=== PATIENT | female | born 1955 | race Caucasian/White ===

== ENCOUNTER 2017-09-12 10:06 | Outpatient (CLI) | payer OTHER ==
[~2017-09-12 10:06] MED LIST: DURICEF PO
== END 2017-09-12 10:10 | disposition home or self-care (01) ==
LOC: LAB 10:06
DX: D50.8 Other iron deficiency anemias (principal); E78.2 Mixed hyperlipidemia; E08.00 Diabetes mellitus due to underlying condition with hyperosmolarity without nonketotic hyperglycemic-hyperosmolar coma (NKHHC); D02.20 Carcinoma in situ of unspecified bronchus and lung

== ENCOUNTER → 2018-09-19 | Outpatient (CLI) | payer OTHER | END | disposition home or self-care (01) | LOC: RAD 14:09 | DX: R07.89 Other chest pain (principal) ==

== ENCOUNTER 2018-09-21 12:16 | Emergency (ER) | payer OTHER ==
[~2018-09-21] VITALS: Ht 170.2 cm; Wt 81.6 kg
== END 2018-09-21 20:13 | disposition home or self-care (01) ==
LOC: ER 12:16
DX: R07.89 Other chest pain (principal)

== ENCOUNTER 2018-09-26 14:04 | Emergency (ER) | payer OTHER ==
[~2018-09-26] VITALS: Ht 172.7 cm; Wt 81.6 kg
[2018-09-26] MEDS ORDERED: OSEL75CA (14:31)
== END 2018-09-26 18:37 | disposition home or self-care (01) ==
LOC: ER 14:04
DX: J22 Unspecified acute lower respiratory infection (principal)

== ENCOUNTER 2018-09-30 10:28 | Outpatient (CLI) | payer OTHER ==
[~2018-09-30 10:28] MED LIST changes: -PANTOPRAZOLE SO40 MG PO; -PREDNISONE20 MG PO; -Pulmicort 0.5 MG/2 M IH; -XOPENEX0.63 MG/3 IH
== END 2018-09-30 15:00 | disposition home or self-care (01) ==
LOC: LAB 10:28
DX: A49.8 Other bacterial infections of unspecified site (principal); I76 Septic arterial embolism; C34.12 Malignant neoplasm of upper lobe, left bronchus or lung; R97.0 Elevated carcinoembryonic antigen [CEA]; E03.8 Other specified hypothyroidism; E78.00 Pure hypercholesterolemia, unspecified

== ENCOUNTER → 2018-09-30 | Outpatient (CLI) | payer OTHER ==
[~2018-09-30] MED LIST changes: +OSEL75CA; +PANTOPRAZOLE SO40 MG PO; +PREDNISONE20 MG PO; +Pulmicort 0.5 MG/2 M IH; +XOPENEX0.63 MG/3 IH
== END | disposition home or self-care (01) ==
LOC: NUCLEAR 11:19
DX: I33.0 Acute and subacute infective endocarditis (principal)

== ENCOUNTER 2018-10-01 11:04 | Inpatient (IN) | payer OTHER ==
[~2018-10-01] VITALS: Ht 172.7 cm; Wt 77.1 kg
[2018-10-08] MEDS ORDERED: PANTOPRAZOLE SO40 MG PO (13:03)
[2018-10-08] MEDS ORDERED: PREDNISONE20 MG PO (13:03)
[2018-10-08] MEDS ORDERED: XOPENEX0.63 MG/3 IH (13:03)
[2018-10-08] MEDS ORDERED: Pulmicort 0.5 MG/2 M IH (13:03)
== END 2018-10-08 13:30 | disposition home or self-care (01) | DRG 206 ==
LOC: MEDJ 11:04
PROVIDERS: ADMIT Internal Medicine Geriatric Medicine
PROC: 8E0ZXY6 Isolation (ICD-10-PCS; 2018-10-01)
PROC: BW21ZZZ Computerized Tomography (CT Scan) of Abdomen and Pelvis (ICD-10-PCS; 2018-10-01)
PROC: CW1NLZZ Planar Nuclear Medicine Imaging of Whole Body using Gallium 67 (Ga-67) (ICD-10-PCS; 2018-10-01)
PROC: 3E0F7GC Introduction of Other Therapeutic Substance into Respiratory Tract, Via Natural or Artificial Opening (ICD-10-PCS; 2018-10-04)
PROC: 0JHF3WZ Insertion of Totally Implantable Vascular Access Device into Left Upper Arm Subcutaneous Tissue and Fascia, Percutaneous Approach (ICD-10-PCS; principal; 2018-10-05)
PROC: [UNRECOGNIZED PROCEDURE] (2018-10-08)
DX: J22 Unspecified acute lower respiratory infection (principal); M35.8 Other specified systemic involvement of connective tissue; R50.9 Fever, unspecified; D64.89 Other specified anemias; R76.8 Other specified abnormal immunological findings in serum; Z85.118 Personal history of other malignant neoplasm of bronchus and lung; Z88.0 Allergy status to penicillin; Z08 Encounter for follow-up examination after completed treatment for malignant neoplasm

== ENCOUNTER 2018-10-23 09:33 | Outpatient (CLI) | payer OTHER ==
[~2018-10-23 09:33] MED LIST changes: +PANTOPRAZOLE SO40 MG PO; +PREDNISONE20 MG PO; +Pulmicort 0.5 MG/2 M IH; +XOPENEX0.63 MG/3 IH
== END 2018-10-23 09:38 | disposition home or self-care (01) ==
LOC: LAB 09:33
DX: R50.9 Fever, unspecified (principal); D64.89 Other specified anemias; I10 Essential (primary) hypertension; I25.10 Atherosclerotic heart disease of native coronary artery without angina pectoris; M06.1 Adult-onset Still's disease; E03.8 Other specified hypothyroidism

== ENCOUNTER 2019-01-10 12:40 | Outpatient (CLI) | payer OTHER | END 2019-01-10 17:08 | disposition home or self-care (01) | LOC: LAB 12:40 | DX: C34.12 Malignant neoplasm of upper lobe, left bronchus or lung (principal); R97.0 Elevated carcinoembryonic antigen [CEA]; R46.0 Very low level of personal hygiene; R70.0 Elevated erythrocyte sedimentation rate ==

== ENCOUNTER 2019-01-17 14:17 | Outpatient (CLI) | payer OTHER | END 2019-01-17 14:27 | disposition home or self-care (01) | LOC: LAB 14:17 | DX: R70.0 Elevated erythrocyte sedimentation rate (principal); M32.8 Other forms of systemic lupus erythematosus; N39.0 Urinary tract infection, site not specified ==

== ENCOUNTER → 2019-04-02 14:01 | Outpatient (CLI) | payer OTHER | END | disposition home or self-care (01) | LOC: LAB 14:01 | DX: D64.89 Other specified anemias (principal); R76.0 Raised antibody titer ==

== ENCOUNTER → 2019-06-13 | Outpatient (CLI) | payer OTHER | END | disposition home or self-care (01) | LOC: RAD 13:46 → TOM 13:46 | DX: J18.8 Other pneumonia, unspecified organism (principal) ==

== ENCOUNTER → 2019-06-20 | Outpatient (CLI) | payer OTHER | END | disposition home or self-care (01) | LOC: RAD 13:18 | DX: R07.89 Other chest pain (principal) ==

== ENCOUNTER 2019-08-22 13:47 | Outpatient (CLI) | payer OTHER | END 2019-08-22 15:05 | disposition home or self-care (01) | LOC: TOM 13:47 | DX: C34.90 Malignant neoplasm of unspecified part of unspecified bronchus or lung (principal); Z85.118 Personal history of other malignant neoplasm of bronchus and lung ==

== ENCOUNTER 2021-11-11 10:47 | Outpatient (CLI) | payer OTHER | END 2021-11-11 11:07 | disposition home or self-care (01) | LOC: TOM 10:47 | PROVIDERS: ATTEND Internal Medicine | DX: Z85.118 Personal history of other malignant neoplasm of bronchus and lung (principal); B96.0 Mycoplasma pneumoniae [M. pneumoniae] as the cause of diseases classified elsewhere; C34.90 Malignant neoplasm of unspecified part of unspecified bronchus or lung ==

== ENCOUNTER 2022-05-19 08:06 | Outpatient (CLI) | payer OTHER | END 2022-05-19 08:18 | disposition home or self-care (01) | LOC: NUCLEAR 08:06 | PROVIDERS: ATTEND Internal Medicine Hematology & Oncology | DX: C34.12 Malignant neoplasm of upper lobe, left bronchus or lung (principal); Z88.1 Allergy status to other antibiotic agents; Z88.0 Allergy status to penicillin; Z88.8 Allergy status to other drugs, medicaments and biological substances | CPT/HCPCS: 78816; A9552 ==

== ENCOUNTER 2022-06-07 10:40 | Outpatient (CLI) | payer OTHER | END 2022-06-07 11:00 | disposition home or self-care (01) | LOC: TOM 10:40 | PROVIDERS: ATTEND Internal Medicine Endocrinology, Diabetes & Metabolism | DX: J18.9 Pneumonia, unspecified organism (principal); Z90.2 Acquired absence of lung [part of] ==

== ENCOUNTER → 2022-10-04 | Outpatient (CLI) | payer OTHER | END | disposition home or self-care (01) | LOC: TOM 13:20 | PROVIDERS: ATTEND Internal Medicine Pulmonary Disease | DX: J16.8 Pneumonia due to other specified infectious organisms (principal); J43.2 Centrilobular emphysema; Z09 Encounter for follow-up examination after completed treatment for conditions other than malignant neoplasm; Z87.09 Personal history of other diseases of the respiratory system; Z85.118 Personal history of other malignant neoplasm of bronchus and lung ==

== ENCOUNTER 2024-01-02 09:19 | Emergency (ER) | payer OTHER ==
[~2024-01-02] VITALS: Ht 172.7 cm; Wt 74.8 kg
[2024-01-02] MEDS ORDERED: PLAVIX75 MG (10:07)
[2024-01-02] MEDS ORDERED: ADULT LOW DOSE81 M1 (10:07)
[2024-01-02] MEDS ORDERED: ELIQUIS5 MG (10:07)
[2024-01-02] MEDS ORDERED: CARDESARTAN (10:08)
[2024-01-02] MEDS ORDERED: [UNRECOGNIZED DRUG - OTHER] (10:08)
[2024-01-02] MEDS ORDERED: CRESTOR20 MG PO (10:08)
[2024-01-02] MEDS ORDERED: CEFTRIAXONE SODIUM 2,000 MG VIAL IM ONE (10:30)
[2024-01-02] MEDS ORDERED: ORPHENADRINE CITRATE 100 MG TABLET PO ONE (10:30)
[2024-01-02] MEDS ORDERED: CIPROFLOXACIN HCL 500 MG TABLET PO ONE (10:45)
[2024-01-02 11:12] LABS: HEMATOCRIT 45.4 % (36.0-45.00); HEMOGLOBIN 15.5 g/dL (12.0-15.00); MEAN CELL VOLUME 95.9 fL (80.00-100.00); MEAN CORPUSCULAR HEMOGLOBIN 32.7 pg (27.00-32.0); MEAN CORPUSCULAR HGB CONC 34.1 g/dl (32.0-36.0); PLATELET COUNT 395 K/uL (150-450); RED BLOOD COUNT 4.74 M/uL (4.00-6.00); RED CELL DISTRIBUTION WIDTH 13.6 % (11.5-14.5)
[2024-01-02 11:28] LABS: PARTIAL THROMBOPLASTIN TIME 25.8 SECONDS (22.0-34.0); PROTHROMBIN TIME 10.5 SECONDS (9.0-11.5)
== END 2024-01-02 14:42 | disposition home or self-care (01) ==
LOC: ER 09:20
PROVIDERS: General Practice
DX: S01.81XA Laceration without foreign body of other part of head, initial encounter (principal); W19.XXXA Unspecified fall, initial encounter; Y93.89 Activity, other specified; Y92.098 Other place in other non-institutional residence as the place of occurrence of the external cause; Y99.8 Other external cause status; I10 Essential (primary) hypertension; Z88.1 Allergy status to other antibiotic agents
CPT/HCPCS: 13132; 13133 ×7; 36415; 70450; 96372; 99284; J0696

== ENCOUNTER 2024-06-30 09:50 | Outpatient (CLI) | payer OTHER ==
[~2024-06-30 09:50] MED LIST changes: +ADULT LOW DOSE81 M1; +CARDESARTAN; +CRESTOR20 MG PO; +ELIQUIS5 MG; +PLAVIX75 MG; +[UNRECOGNIZED DRUG - OTHER]
[2024-06-30 11:03] LABS: URINE APPEARANCE Clear; URINE BILIRRUBIN Negative (NEGATIVE); URINE BLOOD Negative; URINE COLOR Yellow; URINE GLUCOSE Negative (NEGATIVE); URINE KETONE Negative (NEGATIVE); URINE LEUKOCYTE Trace; URINE NITRATE Negative; URINE PROTEIN Negative (NEGATIVE); URINE UROBILINOGEN 0.2 E.U./dl
[2024-06-30 11:04] LABS: HEMOGLOBIN 14.2 g/dL (12.0-15.00); MEAN CELL VOLUME 91.1 fL (80.00-100.00); MEAN CORPUSCULAR HEMOGLOBIN 30.8 pg (27.00-32.0); MEAN CORPUSCULAR HGB CONC 33.8 g/dl (32.0-36.0); PLATELET COUNT 305 K/uL (150-450); RED CELL DISTRIBUTION WIDTH 16.9 % (11.5-14.5)
[2024-06-30 11:09] LABS: URINE EPITHELIAL CELLS 12.4 uL (0.0-38.8); URINE RBC 3.6 uL (0.0-20.8); URINE WBC 4.4 uL (0.0-23.2)
[2024-06-30 11:17] LABS: URINE CAST 0.44 uL (0.0-1.40)
[2024-06-30 11:32] LABS: PARTIAL THROMBOPLASTIN TIME 29.1 SECONDS (22.0-34.0); PROTHROMBIN TIME 10.9 SECONDS (9.0-11.5)
[2024-06-30 12:12] LABS: CALCIUM 9.6 mg/dL (8.5-10.1); CREATININE SERUM 0.7 mg/dL (0.55-1.02); GFR 82.97; POTASSIUM 4.58 mEq/L (3.5-5.1)
== END 2024-06-30 09:58 | disposition home or self-care (01) ==
LOC: RAD 09:50
PROVIDERS: ATTEND Internal Medicine
DX: D64.9 Anemia, unspecified (principal); I10 Essential (primary) hypertension; N39.0 Urinary tract infection, site not specified; R79.1 Abnormal coagulation profile

== ENCOUNTER → 2024-10-31 | Outpatient (CLI) | payer OTHER | END | disposition home or self-care (01) | LOC: TOM 10:58 | PROVIDERS: ATTEND Radiology Diagnostic Radiology | DX: C34.91 Malignant neoplasm of unspecified part of right bronchus or lung (principal) | CPT/HCPCS: 71260; Q9965 ==

== ENCOUNTER 2025-03-06 08:11 | Outpatient (CLI) | payer OTHER | END 2025-03-06 08:17 | disposition home or self-care (01) | LOC: NUCLEAR 08:11 | PROVIDERS: ATTEND Internal Medicine | DX: I20.9 Angina pectoris, unspecified (principal) | CPT/HCPCS: 78452; 93017; A9500 ==

== ENCOUNTER 2025-05-22 17:49 | Inpatient (IN) | payer OTHER ==
[~2025-05-22] VITALS: Ht 172.7 cm; Wt 69.4 kg
[2025-05-22] MEDS ORDERED: PROTONIX40 M1 PO (18:04)
[2025-05-22] MEDS ORDERED: PLAVIX75 MG PO (18:04)
[2025-05-22] MEDS ORDERED: CRESTOR40 MG PO (18:04)
[2025-05-22] MEDS ORDERED: ELIQUIS5 MG PO (18:04)
[2025-05-22] MEDS ORDERED: PAXIL20 MG PO (18:05)
--- NOTE | 2025-05-22 18:05 | NUR ---
SE RECIBE PTE ALERTA Y ORIENTADA X3 EN AMBULANCIA RFIRIENDO SOB E HIPOTENSION. SE MIDEN S/V Y SE UBICA.
[2025-05-22] MEDS ORDERED: LEVALBUTEROL HCL 1.25 MG/3 ML SOLUTION IH SCH (18:21)
[2025-05-22] MEDS ORDERED: VANCOMYCIN HCL 1,000 MG VIAL IV SCH (18:22)
[2025-05-22] MEDS ORDERED: PANTOPRAZOLE SODIUM 40 MG/VIAL VIAL IV ONE (18:30)
[2025-05-22] MEDS ORDERED: 0.9 % SODIUM CHLORIDE 1,000 ML IV SCH (18:30)
[2025-05-22] MEDS ORDERED: LEVALBUTEROL HCL 1.25 MG/3 ML SOLUTION IH ONE (18:43)
[2025-05-22] MEDS ORDERED: PANTOPRAZOLE SODIUM 40 MG in 0.9 % SODIUM CHLORIDE 8 ML IV PUSH SCH (18:58)
[2025-05-22] MEDS ORDERED: APIXABAN 5 MG TABLET PO SCH (18:59)
[2025-05-22 19:41] LABS: INR 1.1
[2025-05-22 20:00] LABS: ALT/SGPT 43.0 U/L (12-78); AST/SGOT 63.0 U/L (15-37); BILIRUBIN TOTAL 0.38 mg/dL (0.3-1.2); BUN CREA RATIO 15.0 (7.0-25.0); CREATININE SERUM 0.71 mg/dL (0.55-1.02); GFR 81.38; GLOBULINA 3.8 G/DL (2.4-3.5); GLUCOSE FASTING 120.0 mg/dL (65-100); LDH 470.0 U/L (84-246); OSMOLALITY SERUM 282.0 MOSM/KG (275-295)
[2025-05-22 20:21] LABS: BASO % 0.2 % (0.1-1.2); EOS # 0.00 (0.04-0.54); EOS % 0.0 % (0.7-7.0); LYMPH # 0.60 (1.18-3.74); LYMPH % 7.0 % (19.3-53.1); MEAN PLATELET VOLUME 9.70 fl (9.4-12.4); MONO # 0.86 (0.24-0.82); MONO % 10.0 % (4.7-12.5); NEUT # 7.05 (1.56-6.13); NEUT % 82.2 % (34.0-71.1); RED CELL DISTRIBUTION WIDTH 20.5 % (11.6-14.4)
[2025-05-22 20:21] LABS: COVID-19 AG NEGATIVE (NEGATIVE)
[2025-05-22 21:03] LABS: ERYTHROCYTE SEDIMENTATION RATE 76 mm/hr (0-30)
[2025-05-22] MEDS ORDERED: ROSUVASTATIN CALCIUM 10 MG TABLET PO SCH (21:39)
[2025-05-22] MEDS ORDERED: ONDANSETRON HCL 4 MG in 0.9 % SODIUM CHLORIDE 50 ML IV PRN (21:45)
[2025-05-22] MEDS ORDERED: ROSUVASTATIN CALCIUM 20 MG TABLET PO ONE (22:03)
[2025-05-22 22:13] VITALS: BP 107/72; O2SAT 95
[2025-05-23] VITALS (24 sets, daily range): BP systolic 65–158; BP diastolic 49–80; O2SAT 72–100
[2025-05-23] MEDS ORDERED: METHYLPREDNISOLONE SOD SUCC 40 MG VIAL IV STA (06:51)
[2025-05-23] MEDS ORDERED: NOREPINEPHRINE BITARTRATE 8 MG in DEXTROSE 5 % IN WATER 250 ML IV SCH (07:00)
[2025-05-23] MEDS ORDERED: PAROXETINE HCL 20 MG TABLET PO SCH (09:00)
[2025-05-23] MEDS ORDERED: ROSUVASTATIN CALCIUM 20 MG TABLET PO SCH (09:00)
[2025-05-23] MEDS ORDERED: CLOPIDOGREL BISULFATE 75 MG TABLET PO SCH (09:00)
[2025-05-23 09:14] LABS: ob NEGATIVE (NEGATIVE)
[2025-05-23] MEDS ORDERED: MEROPENEM 500 MG/VIAL VIAL IV STA (10:03)
[2025-05-23] MEDS ORDERED: MEROPENEM 500 MG/VIAL VIAL IV SCH (14:00)
[2025-05-24] VITALS (13 sets, daily range): BP systolic 88–149; BP diastolic 53–96; O2SAT 89–100
[2025-05-25] VITALS (10 sets, daily range): BP systolic 94–115; BP diastolic 62–71; O2SAT 84–100
[2025-05-25 06:52] LABS: BASO % 0.2 % (0.1-1.2); EOS # 0.03 (0.04-0.54); EOS % 0.2 % (0.7-7.0); LYMPH # 0.87 (1.18-3.74); LYMPH % 6.9 % (19.3-53.1); MEAN PLATELET VOLUME 10.10 fl (9.4-12.4); MONO # 1.82 (0.24-0.82); NEUT # 9.86 (1.56-6.13); NEUT % 77.7 % (34.0-71.1); RED CELL DISTRIBUTION WIDTH 17.2 % (11.6-14.4)
[2025-05-25 07:13] LABS: MONO % 14.4 % (4.7-12.5)
[2025-05-25] MEDS ORDERED: AMINO ACIDS/PROTEIN HYDROLYS 30 ML BLIST.PACK PO SCH (17:00)
[2025-05-26] VITALS (10 sets, daily range): BP systolic 93–126; BP diastolic 58–70; O2SAT 93–100
[2025-05-26] MEDS ORDERED: LINEZOLID IN DEXTROSE 5% 600 MG/300 ML PIGGYBAG IV STA (08:51)
[2025-05-26] MEDS ORDERED: SULFAMETHOXAZOLE/TRIMETHOPRIM 16 MG/ML 10ML VIAL IV STA (09:35)
[2025-05-26] MEDS ORDERED: PREDNISONE 20 MG TABLET PO STA (12:33)
[2025-05-26] MEDS ORDERED: SULFAMETHOXAZOLE/TRIMETHOPRIM 16 MG/ML 10ML VIAL IV SCH (17:00)
[2025-05-26] MEDS ORDERED: PREDNISONE 20 MG TABLET PO SCH (17:00)
[2025-05-26] MEDS ORDERED: LINEZOLID IN DEXTROSE 5% 600 MG/300 ML PIGGYBAG IV SCH (21:00)
[2025-05-26] MEDS ORDERED: METHYLPREDNISOLONE SOD SUCC 40 MG VIAL IV SCH (21:44)
[2025-05-27] VITALS (9 sets, daily range): BP systolic 97–100; BP diastolic 65–66; O2SAT 89–95
[2025-05-27 11:55] LABS: BASO % 0.0 % (0.1-1.2); EOS # 0.00 (0.04-0.54); EOS % 0.0 % (0.7-7.0); LYMPH # 0.37 (1.18-3.74); LYMPH % 3.8 % (19.3-53.1); MEAN PLATELET VOLUME 10.40 fl (9.4-12.4); MONO # 0.88 (0.24-0.82); MONO % 9.0 % (4.7-12.5); NEUT # 8.45 (1.56-6.13); NEUT % 86.7 % (34.0-71.1); RED CELL DISTRIBUTION WIDTH 18.4 % (11.6-14.4)
[2025-05-27 12:30] LABS: ALT/SGPT 73.0 U/L (12-78); AST/SGOT 103.0 U/L (15-37); BILIRUBIN TOTAL 0.4 mg/dL (0.3-1.2); BUN CREA RATIO 19.0 (7.0-25.0); CREATININE SERUM 0.72 mg/dL (0.55-1.02); GFR 80.08; GLOBULINA 3.6 G/DL (2.4-3.5); GLUCOSE FASTING 124.0 mg/dL (65-100); OSMOLALITY SERUM 283.0 MOSM/KG (275-295)
[2025-05-27] MEDS ORDERED: PANTOPRAZOLE SODIUM 40 MG in 0.9 % SODIUM CHLORIDE 8 ML IV PUSH SCH (17:00)
[2025-05-27] MEDS ORDERED: SOD FERRIC GLUC COMPLX/SUCROSE 62.5 MG in 0.9 % SODIUM CHLORIDE 50 ML IV SCH (17:00)
[2025-05-28] VITALS (9 sets, daily range): BP systolic 98–115; BP diastolic 57–70; O2SAT 90–94
[2025-05-28] MEDS ORDERED: ONDANSETRON HCL 2 MG/ML VIAL IV PRN (10:45)
[2025-05-29] VITALS (8 sets, daily range): BP systolic 104–118; BP diastolic 66–73; O2SAT 90–95
[2025-05-29] MEDS ORDERED: SULFAMETHOXAZOLE/TRIMETHOPRIM 16 MG/ML 10ML VIAL IV SCH (09:00)
[2025-05-29] MEDS ORDERED: Cyanocobalamin/Mecobalamin 1 TAB.SL SL SCH (17:00)
[2025-05-29] MEDS ORDERED: VITAMIN B COMPLEX/LYSINE 15 ML BLIST.PACK PO SCH (17:00)
[2025-05-29] MEDS ORDERED: PYRIDOXINE HCL 100 MG TABLET PO SCH (17:00)
[2025-05-30 00:41] VITALS: BP 100/63; O2SAT 94
[2025-05-30 05:32] VITALS: O2SAT 90
[2025-05-30 08:59] VITALS: BP 127/78; O2SAT 95
[2025-05-30 09:22] VITALS: O2SAT 97
[2025-05-30 11:12] LABS: ALT/SGPT 100.0 U/L (12-78); AST/SGOT 130.0 U/L (15-37); BILIRUBIN TOTAL 0.17 mg/dL (0.3-1.2); BUN CREA RATIO 22.0 (7.0-25.0); CREATININE SERUM 0.85 mg/dL (0.55-1.02); GFR 66.12; GLOBULINA 3.3 G/DL (2.4-3.5); GLUCOSE FASTING 132.0 mg/dL (65-100); OSMOLALITY SERUM 284.0 MOSM/KG (275-295)
[2025-05-30 16:45] VITALS: BP 141/76; O2SAT 94
[2025-05-31 01:05] VITALS: BP 137/86; O2SAT 93
[2025-05-31 08:00] VITALS: BP 128/78; O2SAT 91
[2025-05-31 16:39] VITALS: BP 103/65; O2SAT 94
[2025-06-01 00:30] VITALS: BP 102/65; O2SAT 95
[2025-06-01 07:06] LABS: BASO % 0.1 % (0.1-1.2); EOS # 0.00 (0.04-0.54); EOS % 0.0 % (0.7-7.0); LYMPH # 0.30 (1.18-3.74); LYMPH % 2.4 % (19.3-53.1); MEAN PLATELET VOLUME 9.80 fl (9.4-12.4); MONO # 1.10 (0.24-0.82); MONO % 8.8 % (4.7-12.5); NEUT # 10.95 (1.56-6.13); NEUT % 87.7 % (34.0-71.1); RED CELL DISTRIBUTION WIDTH 19.7 % (11.6-14.4)
[2025-06-01 07:31] LABS: ALT/SGPT 134.0 U/L (12-78); AST/SGOT 136.0 U/L (15-37); BILIRUBIN TOTAL 0.21 mg/dL (0.3-1.2); BUN CREA RATIO 30.0 (7.0-25.0); CREATININE SERUM 0.7 mg/dL (0.55-1.02); GFR 82.72; GLOBULINA 3.3 G/DL (2.4-3.5); GLUCOSE FASTING 137.0 mg/dL (65-100); OSMOLALITY SERUM 281.0 MOSM/KG (275-295)
[2025-06-01 08:00] VITALS: BP 124/78; O2SAT 97
[2025-06-01] MEDS ORDERED: PREDNISONE 20 MG TABLET PO SCH (09:00)
[2025-06-01 16:00] VITALS: BP 120/78; O2SAT 95
[2025-06-02] VITALS: BP 110/60; O2SAT 92
[2025-06-02 08:33] VITALS: BP 129/78; O2SAT 94
[2025-06-02] MEDS ORDERED: ACETAZOLAMIDE SODIUM 500 MG VIAL IV SCH (09:00)
[2025-06-03 03:13] VITALS: BP 113/72; O2SAT 96
[2025-06-03 09:10] VITALS: BP 126/76; O2SAT 92
[2025-06-03 17:00] VITALS: BP 97/58; O2SAT 88
[2025-06-04] VITALS (9 sets, daily range): BP systolic 99–123; BP diastolic 63–74; O2SAT 90–100
[2025-06-04] MEDS ORDERED: DOCUSATE SODIUM 100MG CAP PO SCH (09:00)
[2025-06-05 00:38] VITALS: O2SAT 90
[2025-06-05 01:01] VITALS: BP 107/68; O2SAT 98
[2025-06-05 04:18] VITALS: O2SAT 100
[2025-06-05 07:30] VITALS: BP 103/67; O2SAT 98
[2025-06-05 09:19] VITALS: O2SAT 99
[2025-06-05 18:36] VITALS: BP 86/52; O2SAT 97
[2025-06-06] VITALS (8 sets, daily range): BP systolic 102–106; BP diastolic 52–68; O2SAT 90–99
[2025-06-06] MEDS ORDERED: PREDNISONE 20 MG TABLET PO SCH (09:00)
[2025-06-07] VITALS (8 sets, daily range): BP systolic 88–106; BP diastolic 54–58; O2SAT 90–99
[2025-06-07] MEDS ORDERED: POLYETHYLENE GLYCOL 3350 17 GM BLIST.PACK PO STA (15:09)
[2025-06-07] MEDS ORDERED: PANTOPRAZOLE SODIUM 40 MG in 0.9 % SODIUM CHLORIDE 8 ML IV PUSH SCH (17:00)
[2025-06-07] MEDS ORDERED: POLYETHYLENE GLYCOL 3350 17 GM BLIST.PACK PO SCH (17:00)
[2025-06-08] VITALS (9 sets, daily range): BP systolic 105–148; BP diastolic 65–76; O2SAT 90–99
[2025-06-08 06:45] LABS: BASO % 0.3 % (0.1-1.2); EOS # 0.02 (0.04-0.54); EOS % 0.2 % (0.7-7.0); LYMPH # 0.78 (1.18-3.74); LYMPH % 7.7 % (19.3-53.1); MEAN PLATELET VOLUME 8.90 fl (9.4-12.4); MONO # 1.22 (0.24-0.82); NEUT # 7.95 (1.56-6.13); NEUT % 79.0 % (34.0-71.1); RED CELL DISTRIBUTION WIDTH 21.0 % (11.6-14.4)
[2025-06-08 06:56] LABS: MONO % 12.1 % (4.7-12.5)
[2025-06-08 07:25] LABS: ALT/SGPT 127.0 U/L (12-78); AST/SGOT 107.0 U/L (15-37); BILIRUBIN TOTAL 0.25 mg/dL (0.3-1.2); BUN CREA RATIO 22.0 (7.0-25.0); CREATININE SERUM 0.81 mg/dL (0.55-1.02); GFR 69.9; GLOBULINA 3.6 G/DL (2.4-3.5); GLUCOSE FASTING 69.0 mg/dL (65-100); OSMOLALITY SERUM 282.0 MOSM/KG (275-295)
[2025-06-08] MEDS ORDERED: POLYETHYLENE GLYCOL 3350 17 GM BLIST.PACK PO SCH (09:00)
[2025-06-09] VITALS (7 sets, daily range): BP systolic 95–101; BP diastolic 57–70; O2SAT 94–99
[2025-06-10 00:52] VITALS: BP 95/60; O2SAT 98
[2025-06-10 01:19] VITALS: O2SAT 98
[2025-06-10 06:26] VITALS: O2SAT 99
[2025-06-10 08:00] VITALS: BP 95/57; O2SAT 99
[2025-06-10 09:07] VITALS: O2SAT 96
[2025-06-10 16:00] VITALS: BP 80/53; O2SAT 98
[2025-06-11 01:11] VITALS: BP 97/61; O2SAT 97
[2025-06-11 08:06] VITALS: BP 108/65; O2SAT 97
[2025-06-11] MEDS ORDERED: CLONAZEPAM 0.5 MG TABLET PO STA (10:49)
[2025-06-11 17:33] VITALS: BP 98/60; O2SAT 97
[2025-06-11 23:57] VITALS: BP 95/54; O2SAT 98
[2025-06-12 08:38] VITALS: BP 96/60; O2SAT 95
[2025-06-12 16:00] VITALS: BP 104/63; O2SAT 98
[2025-06-13 01:41] VITALS: BP 108/68; O2SAT 99
[2025-06-13 08:32] VITALS: BP 82/53; O2SAT 96
[2025-06-14 02:32] VITALS: BP 107/66; O2SAT 99
[2025-06-14 08:59] VITALS: BP 90/56; O2SAT 97
[2025-06-14 16:37] VITALS: BP 81/45; O2SAT 95
[2025-06-15 00:28] VITALS: BP 131/66; O2SAT 96
[2025-06-15 07:30] VITALS: BP 95/61; O2SAT 99
[2025-06-15 16:03] VITALS: BP 102/70; O2SAT 97
[2025-06-16 00:52] VITALS: BP 77/40; O2SAT 98
[2025-06-16 01:16] VITALS: BP 92/60; O2SAT 99
[2025-06-16] MEDS ORDERED: 0.9 % SODIUM CHLORIDE 10 ML VIAL IJ ONE (06:40)
[2025-06-16 06:53] LABS: BASO % 0.5 % (0.1-1.2); EOS # 0.02 (0.04-0.54); EOS % 0.2 % (0.7-7.0); LYMPH # 0.80 (1.18-3.74); LYMPH % 8.2 % (19.3-53.1); MEAN PLATELET VOLUME 9.70 fl (9.4-12.4); MONO # 0.85 (0.24-0.82); MONO % 8.8 % (4.7-12.5); NEUT # 7.96 (1.56-6.13); NEUT % 82.1 % (34.0-71.1); RED CELL DISTRIBUTION WIDTH 20.6 % (11.6-14.4)
[2025-06-16 07:27] LABS: ALT/SGPT 115.0 U/L (12-78); AST/SGOT 76.0 U/L (15-37); BILIRUBIN TOTAL 0.33 mg/dL (0.3-1.2); BUN CREA RATIO 26.0 (7.0-25.0); CREATININE SERUM 0.9 mg/dL (0.55-1.02); GFR 61.9; GLOBULINA 3.5 G/DL (2.4-3.5); GLUCOSE FASTING 81.0 mg/dL (65-100); OSMOLALITY SERUM 286.0 MOSM/KG (275-295)
[2025-06-16 08:00] VITALS: BP 102/62; O2SAT 96
[2025-06-16] MEDS ORDERED: SULFAMETHOXAZOLE/TRIMETHOPRIM 16 MG/ML 10ML VIAL IV SCH (13:00)
[2025-06-16 16:36] VITALS: BP 96/62; O2SAT 96
[2025-06-17] VITALS: BP 104/62; O2SAT 96
[2025-06-17 08:00] VITALS: BP 92/60; O2SAT 97
== END 2025-06-17 14:18 | disposition home or self-care (01) | DRG 193 ==
LOC: ER → SURH 20:02
PROVIDERS: General Practice; Internal Medicine; ADMIT Specialist; ATTEND Specialist
PROC: BW24ZZZ Computerized Tomography (CT Scan) of Chest and Abdomen (ICD-10-PCS; 2025-05-22)
PROC: B24BYZZ Ultrasonography of Heart with Aorta using Other Contrast (ICD-10-PCS; 2025-05-22)
PROC: 8E0ZXY6 Isolation (ICD-10-PCS; principal; 2025-05-23)
PROC: 4A12X4Z Monitoring of Cardiac Electrical Activity, External Approach (ICD-10-PCS; 2025-05-23)
PROC: 30243N1 Transfusion of Nonautologous Red Blood Cells into Central Vein, Percutaneous Approach (ICD-10-PCS; 2025-05-23)
PROC: BW24YZZ Computerized Tomography (CT Scan) of Chest and Abdomen using Other Contrast (ICD-10-PCS; 2025-05-24)
PROC: BH4BZZZ Ultrasonography of Chest Wall (ICD-10-PCS; 2025-05-26)
PROC: BW24ZZZ Computerized Tomography (CT Scan) of Chest and Abdomen (ICD-10-PCS; 2025-06-03)
PROC: BR39ZZZ Magnetic Resonance Imaging (MRI) of Lumbar Spine (ICD-10-PCS; 2025-06-11)
DX: J18.9 Pneumonia, unspecified organism (principal); A41.9 Sepsis, unspecified organism; R57.1 Hypovolemic shock; J90 Pleural effusion, not elsewhere classified; J98.11 Atelectasis; C34.90 Malignant neoplasm of unspecified part of unspecified bronchus or lung; C16.9 Malignant neoplasm of stomach, unspecified; C22.9 Malignant neoplasm of liver, not specified as primary or secondary; I95.9 Hypotension, unspecified; D64.9 Anemia, unspecified; I50.9 Heart failure, unspecified; Z66 Do not resuscitate; I25.10 Atherosclerotic heart disease of native coronary artery without angina pectoris; D64.81 Anemia due to antineoplastic chemotherapy; T45.1X5A Adverse effect of antineoplastic and immunosuppressive drugs, initial encounter; F17.200 Nicotine dependence, unspecified, uncomplicated; M21.371 Foot drop, right foot
CPT/HCPCS: 71275; 72148

== ENCOUNTER 2025-06-22 13:33 | Outpatient (CLI) | payer OTHER ==
[~2025-06-22 13:33] MED LIST changes: +CRESTOR40 MG PO; +ELIQUIS5 MG PO; +PAXIL20 MG PO; +PLAVIX75 MG PO; +PROTONIX40 M1 PO
[2025-06-22 13:59] LABS: BASO % 0.2 % (0.1-1.2); EOS # 0.00 (0.04-0.54); EOS % 0.0 % (0.7-7.0); LYMPH # 0.36 (1.18-3.74); LYMPH % 3.3 % (19.3-53.1); MEAN PLATELET VOLUME 9.30 fl (9.4-12.4); MONO # 0.73 (0.24-0.82); MONO % 6.6 % (4.7-12.5); NEUT # 9.80 (1.56-6.13); NEUT % 88.9 % (34.0-71.1); RED CELL DISTRIBUTION WIDTH 20.8 % (11.6-14.4)
[2025-06-22 14:21] LABS: ALT/SGPT 226.0 U/L (12-78); AST/SGOT 147.0 U/L (15-37); BILIRUBIN TOTAL 0.86 mg/dL (0.3-1.2); BUN CREA RATIO 23.0 (7.0-25.0); CREATININE SERUM 0.66 mg/dL (0.55-1.02); GFR 88.54; GLOBULINA 4.4 G/DL (2.4-3.5); GLUCOSE FASTING 130.0 mg/dL (65-100); OSMOLALITY SERUM 284.0 MOSM/KG (275-295)
[2025-06-23 10:52] LABS: FECAL LEUKOCYTES POSITIVE (NEGATIVE); ob POSITIVE (NEGATIVE)
== END 2025-06-22 13:39 | disposition home or self-care (01) ==
LOC: LAB 13:33
PROVIDERS: ATTEND Specialist
DX: D64.9 Anemia, unspecified (principal); Z12.11 Encounter for screening for malignant neoplasm of colon; E11.65 Type 2 diabetes mellitus with hyperglycemia; C16.6 Malignant neoplasm of greater curvature of stomach, unspecified

== ENCOUNTER 2025-06-22 14:04 | Outpatient (CLI) | payer OTHER | END 2025-06-27 10:18 | disposition home or self-care (01) | LOC: TOM 14:04 | PROVIDERS: ATTEND Specialist | DX: C18.9 Malignant neoplasm of colon, unspecified (principal) | CPT/HCPCS: 74178; Q9965 ==